=== PATIENT | male | born 1975 | race Caucasian/White ===

== ENCOUNTER 2017-11-11 14:38 | Inpatient (IN) | payer OTHER ==
[~2017-11-11] VITALS: Ht 198.1 cm; Wt 86.2 kg
[2017-11-11 15:16] VITALS: BP 129/54
[2017-11-11] MEDS ORDERED: Pantoprazole Inj IV ONE (15:30)
[2017-11-11 15:41] LABS: INR 1.7 (0.9-1.1)
[2017-11-11 15:44] LABS: HEMOGLOBIN 7.5 G/DL (14.2-18.0); MEAN CORPUSCULAR VOLUME 87 FL (80-99); PLATELET COUNT 89 K/UL (150-450); RED BLOOD COUNT 2.76 M/UL (4.70-6.10); RED CELL DISTRIBUTION WIDTH 20.2 % (11.6-14.8); WHITE BLOOD COUNT 9.3 K/UL (4.8-10.8)
[2017-11-11 15:52] LABS: ALANINE AMINOTRANSFERASE 30 U/L (12-78); ALBUMIN/GLOBULIN RATIO 0.8 (1.0-2.7); ALKALINE PHOSPHATASE 232 U/L (46-116); ASPARTATE AMINO TRANSFERASE 130 U/L (15-37); BLOOD UREA NITROGEN 16 mg/dL (7-18); CALCIUM 7.9 MG/DL (8.5-10.1); CARBON DIOXIDE 25 MMOL/L (21-32)
[2017-11-11 15:57] LABS: BILIRUBIN,DIRECT 4.6 MG/DL (0.0-0.3)
[2017-11-11 16:03] LABS: CHLORIDE 101 MMOL/L (98-107); SODIUM 142 MMOL/L (136-145)
--- NOTE | 2017-11-11 16:58 | Emergency Room Report ---
History of Present Illness General Chief Complaint: General Complaint Source: Patient, EMS Present Illness HPI 41-year-old male presents ED for evaluation. Patient brought in by EMS for vomiting blood earlier today. Patient visiting from [place]. Staying in hotel. Patient denies any abdominal pain. Denies any chest pain or shortness of breath. 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 Admits to drinking yesterday and today as well. Denies drug use. No other aggravating or relieving factors. Denies any other associated symptoms Allergies: Coded Allergies: No Known Allergies (Unverified , 11/11/17) Patient History Past Medical History: other - varices Past Surgical History: none Pertinent Family History: none Social History: Reports: alcohol use; Denies: smoking, drug use Immunizations: UTD Reviewed Nursing Documentation: PMH: Agreed; PSxH: Agreed Nursing Documentation-PMH Past Medical History: No History, Except For Review of Systems All Other Systems: negative except mentioned in HPI Physical Exam Vital Signs Date Time Temp Pulse Resp B/P (MAP) Pulse Ox O2 Delivery O2 Flow Rate FiO2 11/11/17 14:35 98.4 120 16 111/68 99 Room Air 98.4 Sp02 EP Interpretation: reviewed, normal General Appearance: no apparent distress, alert, GCS 15, non-toxic Head: normocephalic, atraumatic Eyes: bilateral eye normal inspection, bilateral eye PERRL ENT: hearing grossly normal, normal pharynx, no angioedema, normal voice Neck: full range of motion, supple/symm/no masses Respiratory: chest non-tender, lungs clear, normal breath sounds, speaking full sentences Cardiovascular #1: regular rate, rhythm, no edema Cardiovascular #2: 2+ carotid (R), 2+ carotid (L), 2+ radial (R), 2+ radial (L) , 2+ dorsalis pedis (R), 2+ dorsalis pedis (L) Gastrointestinal: normal bowel sounds, non tender, soft, non-distended, no guarding, no rebound Rectal: deferred Genitourinary: normal inspection, no CVA tenderness Musculoskeletal: back normal, gait/station normal, normal range of motion, non- tender Neurologic: alert, oriented x3, responsive, motor strength/tone normal, sensory intact, speech normal Psychiatric: judgement/insight normal, memory normal, mood/affect normal, no suicidal/homicidal ideation Reflexes: 3+ bicep (R), 3+ bicep (L), 3+ tricep (R), 3+ tricep (L), 3+ knee (R) , 3+ knee (L) Skin: normal color, no rash, warm/dry, well hydrated Lymphatic: no adenopathy Procedures Critical Care Time Critical Care Time i. I feel this is a highly complex case requiring extensive working including EKG/Rhythm strip, Xray/CT/US, Blood/urine lab work, repeat exams while in ED, and administration of strong opiates/narcotics for pain control, admission to hospital or close patient follow up. Total time: 30 min bedside evaluation and treatment excludes procedures (EKG). Reason for critical care: Anemic, upper GI bleed Possible complications: hypotension, hypertension, AK, shock, arrhythmias, metabolic acidosis, end organ damage, respiratory failure. Interventions: Labs, IV fluids, Protonix, Zofran. Blood transfusion Course: Patient presenting with hematemesis. History of varices. Hemoglobin 7.5. Tachycardia with minimal improvement with IV fluids. Given Protonix and Zofran. PRBCs ordered Consultations: nursing staff, EMS, family Performed by: Dr Montes Tolerated well condition = serious j. because of unstable vital signs this patient had a condition that could potentially threaten life or limb. I feel this is a critical patient who required my full attention while patient was considered critical. Total Critical Care Time excluding procedures was greater than 35 minutes Medical Decision Making Diagnostic Impression: Primary Impression: UGIB (upper gastrointestinal bleed) Additional Impressions: Elevated LFTs Anemia Qualified Codes: D64.9 - Anemia, unspecified ER Course Hospital Course 41-year-old male presents ED with vomiting blood. History of varices Differential diagnoses include: UGIB, LGIB, hemorrhoids Clinical course Patient placed on stretcher. lna. After initial history and physical I ordered labs, IV fluids, Protonix, Zofran Labs - no leukocytosis, hb 7.5. electrolytes ok, LFTS and Bili elevated EKG - sinus tachycardia no acute ischemic changes interpreted by me Tachycardia resolving with IV fluids. PRBCs ordered. Case discussed with Dr. Couch and he agreed to accept the patient to his service for further care and support I feel this is a highly complex case requiring extensive working including EKG/ Rhythm strip, Xray/CT/US, Blood/urine lab work, repeat exams while in ED, and administration of strong opiates/narcotics for pain control, admission to hospital or close patient follow up. Diagnosis - UGIB, elevated LFTs, anemia Patient admitted to telemetry in serious condition Labs Test 11/11/17 15:00 White Blood Count 9.3 K/UL (4.8-10.8) Red Blood Count 2.76 M/UL (4.70-6.10) Hemoglobin 7.5 G/DL (14.2-18.0) Hematocrit 24.0 % (42.0-52.0) Mean Corpuscular Volume 87 FL (80-99) Mean Corpuscular Hemoglobin 27.1 PG (27.0-31.0) Mean Corpuscular Hemoglobin Concent 31.1 G/DL (32.0-36.0) Red Cell Distribution Width 20.2 % (11.6-14.8) Platelet Count 89 K/UL (150-450) Mean Platelet Volume 7.2 FL (6.5-10.1) Neutrophils (%) (Auto) % (45.0-75.0) Lymphocytes (%) (Auto) % (20.0-45.0) Monocytes (%) (Auto) % (1.0-10.0) Eosinophils (%) (Auto) % (0.0-3.0) Basophils (%) (Auto) % (0.0-2.0) Prothrombin Time 17.8 SEC (9.30-11.50) Prothromb Time International Ratio 1.7 (0.9-1.1) Activated Partial Thromboplast Time 37 SEC (23-33) Sodium Level 142 MMOL/L (136-145) Potassium Level 4.0 MMOL/L (3.5-5.1) Chloride Level 101 MMOL/L (98-107) Carbon Dioxide Level 25 MMOL/L (21-32) Blood Urea Nitrogen 16 mg/dL (7-18) Creatinine 1.0 MG/DL (0.55-1.30) Estimat Glomerular Filtration Rate > 60 mL/min (>60) Glucose Level 117 MG/DL (74-106) Calcium Level 7.9 MG/DL (8.5-10.1) Total Bilirubin 7.0 MG/DL (0.2-1.0) Direct Bilirubin 4.6 MG/DL (0.0-0.3) Aspartate Amino Transf (AST/SGOT) 130 U/L (15-37) Alanine Aminotransferase (ALT/SGPT) 30 U/L (12-78) Alkaline Phosphatase 232 U/L (46-116) Total Protein 6.9 G/DL (6.4-8.2) Albumin 3.0 G/DL (3.4-5.0) Globulin 3.9 g/dL Albumin/Globulin Ratio 0.8 (1.0-2.7) Lipase 208 U/L (73-393) EKG Diagnostic Results Rate: tachycardiac Rhythm: NSR ST Segments: no acute changes ASA given to the pt in ED: No Rhythm Strip Diag. Results EP Interpretation: yes Rhythm: NSR, no PVC's, no ectopy Last Vital Signs Date Time Temp Pulse Resp B/P (MAP) Pulse Ox O2 Delivery O2 Flow Rate FiO2 11/11/17 15:16 98.0 123 12 129/54 97 Room Air 98.0 Status: improved Disposition: ADMITTED INPATIENT Condition: Serious Referrals: NOT CHOSEN NEHA/,REFERRING (PCP) LILLY MONTES M.D. Nov 11, 2017 16:57
[2017-11-11 17:16] VITALS: BP 108/62
[2017-11-11 17:19] LABS: APPEARANCE,URINE CLEAR; BILIRUBIN, URINE 1+ (NEGATIVE); GLUCOSE, URINE (UA) NEGATIVE (NEGATIVE); KETONES,URINE 2+ (NEGATIVE); LEUKOCYTE ESTERASE ,URINE 1+ (NEGATIVE); NITRITE,URINE NEGATIVE (NEGATIVE); PH,URINE 6 (4.5-8.0); PROTEIN,URINE 1+ (NEGATIVE); UROBILINOGEN,URINE 4 MG/DL (0.0-1.0)
[2017-11-11 17:21] LABS: COLOR,URINE BROWN
[2017-11-11 18:40] VITALS: BP 129/58
[2017-11-11] MEDS: Octreotide Acetate 500 MCG in Sodium Chloride 500ML 499 ML IV SCH (19:30)
[2017-11-11] MEDS ORDERED: Pantoprazole 80 MG in NS 250 ML IV SCH (19:30)
[2017-11-11] MEDS ORDERED: Piperacillin/Tazobactam 3.375 GM in D5W 110 ML IVPB SCH (19:30)
[2017-11-11] MEDS ORDERED: Pantoprazole Inj ONE (21:33)
--- NOTE | 2017-11-12 02:30 | History and Physical Report ---
DATE OF ADMISSION: 11/11/2017 CHIEF COMPLAINT: GI bleed. HISTORY OF PRESENT ILLNESS: The patient is a 41-year-old male. He states that he has history of varices, but was told that his liver is "okay." He has a history of heavy drinking. Lately, he has been drinking intermittently. He is currently traveling from [place]. He shared a bottle of vodka with three of his friends and then had some coffee-grounds emesis x5, presented to the emergency room. On evaluation there, his hemoglobin was 7.5 and platelet count of 89,000. Coags are elevated at 1.7. His bilirubin was 7 with a direct of 4.6. AST of 130. The patient is currently being transfused. He is now admitted for further evaluation for GI bleed. PAST MEDICAL HISTORY: As above. PAST SURGICAL HISTORY: None. CURRENT MEDICATIONS: None. SOCIAL HISTORY: The patient is a prior heavy drinker and drinks intermittently. Denies any history of withdrawal. FAMILY HISTORY: None. REVIEW OF SYSTEMS: Negative except for coffee-ground emesis. PHYSICAL EXAMINATION: VITAL SIGNS: Temperature 98.7 degrees, pulse 114, respirations 18, and blood pressure 129/58. GENERAL: The patient is a well developed, no apparent distress. HEART: Regular rate and rhythm. LUNGS: Clear. ABDOMEN: Soft. EXTREMITIES: Without clubbing, cyanosis, or edema. LABORATORY DATA: White count 9 and hemoglobin 7.5. INR is 1.7. Total bilirubin of 7. UA was clear. ASSESSMENT: This is a pleasant male with complaints of coffee-ground emesis secondary to variceal bleeding. PLAN: IV proton pump inhibitor, octreotide drip, and IV antibiotics. GI consultation for possible endoscopy. Vitamin K and FFP will also be given. Brennan Couch M.D. DR: Amaris JOB#: [id number] CC:
[2017-11-12] MEDS ORDERED: Piperacillin/Tazobactam 3.375 GM in D5W 110 ML IVPB SCH (06:00)
[2017-11-12] MEDS ORDERED: Zosyn 3.375gm inj ONE (06:03)
[2017-11-12] MEDS: Octreotide Acetate 500 MCG in Sodium Chloride 500ML 499 ML IV SCH ×3 (07:33→16:16)
[2017-11-12 08:00] VITALS: BP 119/72
[2017-11-12] MEDS: Pantoprazole 80 MG in NS 250 ML IV SCH ×2 (08:33→17:39)
--- NOTE | 2017-11-12 09:31 | General Progress Note ---
Assessment/Plan Problem List: (1) Anemia ICD Codes: D64.9 - Anemia, unspecified SNOMED: 266616720 Qualifiers: Qualified Codes: D64.9 - Anemia, unspecified (2) Elevated LFTs ICD Codes: R79.89 - Other specified abnormal findings of blood chemistry SNOMED: 761217247, 157630541 (3) UGIB (upper gastrointestinal bleed) ICD Codes: K92.2 - Gastrointestinal hemorrhage, unspecified SNOMED: 00421706 Status: stable Assessment/Plan follow up cbc PPI octreotide abx gi eval pending Subjective ROS Limited/Unobtainable: No Constitutional: Reports: malaise, weakness HEENT: Reports: no symptoms Cardiovascular: Reports: no symptoms Respiratory: Reports: no symptoms Gastrointestinal/Abdominal: Reports: vomiting Genitourinary: Reports: no symptoms Neurologic/Psychiatric: Reports: no symptoms Endocrine: Reports: no symptoms Hematologic/Lymphatic: Reports: anemia Allergies: Coded Allergies: No Known Allergies (Unverified , 11/11/17) All Systems: reviewed and negative except above Subjective s/p2 units. labs pending. no hematemesis. stool brown Objective Last 24 Hour Vital Signs Date Time Temp Pulse Resp B/P (MAP) Pulse Ox O2 Delivery O2 Flow Rate FiO2 11/12/17 04:00 102 11/12/17 04:00 108 11/12/17 00:00 103 11/11/17 20:00 117 11/11/17 18:52 98.7 114 18 129/58 100 Room Air 98.7 11/11/17 18:40 98.7 114 19 98.7 11/11/17 18:40 98.7 114 18 129/58 100 Room Air 98.7 11/11/17 17:16 98.0 116 19 108/62 100 Room Air 98.0 11/11/17 15:16 98.0 123 12 129/54 97 Room Air 98.0 11/11/17 14:35 98.4 120 16 111/68 99 Room Air 98.4 Intake and Output 11/11/17 11/12/17 19:00 07:00 Intake Total 1240 ml Output Total 4 ml Balance 1240 ml -4 ml Intake Oral 240 ml IV Total 1000 ml Output Urine Total 4 ml Laboratory Tests 11/11/17 15:00: White Blood Count 9.3, Red Blood Count 2.76L, Hemoglobin 7.5L, Hematocrit 24.0L , Mean Corpuscular Volume 87, Mean Corpuscular Hemoglobin 27.1, Mean Corpuscular Hemoglobin Concent 31.1L, Red Cell Distribution Width 20.2H, Platelet Count 89L, Mean Platelet Volume 7.2, Neutrophils (%) (Auto) , Lymphocytes (%) (Auto) , Monocytes (%) (Auto) , Eosinophils (%) (Auto) , Basophils (%) (Auto) , Differential Total Cells Counted 100, Neutrophils % ( Manual) 81H, Lymphocytes % (Manual) 13L, Monocytes % (Manual) 5, Eosinophils % ( Manual) 0, Basophils % (Manual) 0, Band Neutrophils 1, Platelet Estimate DecreasedL, Platelet Morphology Normal, Polychromasia 1+, Hypochromasia 2+, Anisocytosis 2+, Target Cells 1+, Prothrombin Time 17.8H, Prothromb Time International Ratio 1.7H, Activated Partial Thromboplast Time 37H, Sodium Level 142, Potassium Level 4.0, Chloride Level 101, Carbon Dioxide Level 25, Blood Urea Nitrogen 16, Creatinine 1.0, Estimat Glomerular Filtration Rate > 60, Glucose Level 117H, Calcium Level 7.9L, Total Bilirubin 7.0H, Direct Bilirubin 4.6H, Aspartate Amino Transf (AST/SGOT) 130H, Alanine Aminotransferase (ALT/SGPT ) 30, Alkaline Phosphatase 232H, Total Protein 6.9, Albumin 3.0L, Globulin 3.9, Albumin/Globulin Ratio 0.8L, Lipase 208 11/11/17 15:10: Urine Color Brown, Urine Appearance Clear, Urine pH 6, Urine Specific [place] 1.020, Urine Protein 1+H, Urine Glucose (UA) Negative, Urine Ketones 2+H, Urine Occult Blood Negative, Urine Nitrite Negative, Urine Bilirubin 1+H, Urine Ictotest Positive, Urine Urobilinogen 4H, Urine Leukocyte Esterase 1+H, Urine RBC 0-2H, Urine WBC 2-4, Urine Squamous Epithelial Cells None, Urine Amorphous Sediment FewH, Urine Bacteria Few Height (Feet): 6 Weight (Pounds): 190 General Appearance: WD/WN Neck: supple Cardiovascular: regular rhythm Respiratory/Chest: lungs clear Abdomen: normal bowel sounds, non tender, soft, no organomegaly Edema: no edema noted Arm (L), no edema noted Arm (R), no edema noted Leg (L), no edema noted Leg (R), no edema noted Pedal (L), no edema noted Pedal (R), no edema noted Generalized GILSON SIERRA Nov 12, 2017 09:31
[2017-11-12 09:48] LABS: HEMATOCRIT 28.2 % (42.0-52.0); HEMOGLOBIN 9.1 G/DL (14.2-18.0); MEAN CORPUSCULAR VOLUME 86 FL (80-99); PLATELET COUNT 77 K/UL (150-450); RED BLOOD COUNT 3.29 M/UL (4.70-6.10); RED CELL DISTRIBUTION WIDTH 18.6 % (11.6-14.8); WHITE BLOOD COUNT 6.5 K/UL (4.8-10.8)
[2017-11-12 12:00] VITALS: BP 118/72
[2017-11-12 13:29] LABS: ANION GAP 6 mmol/L (5-15); BLOOD UREA NITROGEN 15 mg/dL (7-18); CALCIUM 7.7 MG/DL (8.5-10.1); CARBON DIOXIDE 28 MMOL/L (21-32); CHLORIDE 107 MMOL/L (98-107); POTASSIUM 4.7 MMOL/L (3.5-5.1); SODIUM 141 MMOL/L (136-145)
[2017-11-12 13:31] LABS: INR 1.6 (0.9-1.1)
[2017-11-12 13:39] LABS: ALANINE AMINOTRANSFERASE 27 U/L (12-78); ALBUMIN 2.9 G/DL (3.4-5.0); ALBUMIN/GLOBULIN RATIO 0.8 (1.0-2.7); ALKALINE PHOSPHATASE 203 U/L (46-116); ASPARTATE AMINO TRANSFERASE 128 U/L (15-37); BILIRUBIN,TOTAL 8.7 MG/DL (0.2-1.0)
[2017-11-12 13:40] LABS: BILIRUBIN,DIRECT 5.5 MG/DL (0.0-0.3)
[2017-11-12] MEDS: Piperacillin/Tazobactam 3.375 GM in D5W 110 ML IVPB SCH ×2 (14:06→21:10)
[2017-11-12 16:00] VITALS: BP 109/68
[2017-11-12] MEDS ORDERED: Phytonadione 10 mg/mL 1ml amp SUBQ ONE (17:45)
[2017-11-12 19:24] LABS: HEMATOCRIT 25.7 % (42.0-52.0); HEMOGLOBIN 8.2 G/DL (14.2-18.0); MEAN CORPUSCULAR VOLUME 85 FL (80-99); PLATELET COUNT 70 K/UL (150-450); RED BLOOD COUNT 3.01 M/UL (4.70-6.10); RED CELL DISTRIBUTION WIDTH 18.5 % (11.6-14.8); WHITE BLOOD COUNT 4.4 K/UL (4.8-10.8)
[2017-11-12 20:00] VITALS: BP 118/65
--- NOTE | 2017-11-12 20:30 | Consultation ---
DATE OF CONSULTATION: 11/12/2017 GASTROENTEROLOGY CONSULTATION CONSULTING PHYSICIAN: Brigette Yadav M.D. CHIEF COMPLAINT: I was asked to see this patient for evaluation of upper gastrointestinal bleeding and alcoholic hepatitis. HISTORY OF PRESENT ILLNESS: The patient is a 41-year-old white man, who is admitted on an emergency basis for acute upper gastrointestinal bleeding to this hospital. The patient states that he had some drinks on weekend and then subsequently felt sick, nauseous, and then had vomiting of red blood. He has had history of upper gastrointestinal bleeding in the past that involved varices. He has had four endoscopies total, two of which involved banding and two were simply surveillance endoscopies. His last endoscopy was in June 2017. He has also had been told he has some degree of cirrhosis and has had jaundice in the past. On this occasion, he also has noted that he has become jaundiced. He previously drank heavily up to about a quarter of a bottle a day. He drinks hard liquor. Now he drinks intermittently. PAST MEDICAL HISTORY: Remarkable for alcohol use as described above, otherwise negative. ALLERGIES: None. MEDICATIONS: See chart list for details. FAMILY HISTORY: Positive for some type of cancer in the paternal grandmother. SOCIAL HISTORY: The patient is . 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 REVIEW OF SYSTEMS: Otherwise negative. PHYSICAL EXAMINATION: GENERAL: This is a pleasant jaundiced white man seen in his room. HEENT: Normocephalic and atraumatic. Sclerae were icteric. Oropharynx clear. NECK: Supple. CHEST: Clear to auscultation. CARDIOVASCULAR: Revealed regular rate. ABDOMEN: Soft. Good bowel sounds. EXTREMITIES: Revealed no edema. LABORATORY DATA: Noted. ASSESSMENT: This patient presents with jaundice which has been attributed to acute alcoholic hepatitis given the AST/ALT ratio. His discriminant factor calculates to 38. Therefore, he was started on steroids for 28 days at a dose of 40 mg daily. He should also be placed on proton pump inhibitor. Sandostatin drip has been started empirically for presumption of varices and this will be continued until his endoscopy is done and further evaluation has been made. The patient will be kept n.p.o. or at least on clear liquids until his time of endoscopy. He was strongly advised to discontinue alcohol consumption as he states he has been told before. RECOMMENDATIONS: 1. Serial CBC. 2. Check coagulation. 3. N.P.O. 4. Sandostatin. 5. Prednisone 40 mg daily for 28 days. 6. Endoscopy with possible banding. Thank you for asking me to participate in the care of this patient. Brigette Yadav M.D. DR: Doug JOB#: [id number] CC: PRASHANTH
[2017-11-13] VITALS (9 sets, daily range): BP systolic 102–152; BP diastolic 56–89
[2017-11-13] MEDS: Octreotide Acetate 500 MCG in Sodium Chloride 500ML 499 ML IV SCH ×2 (00:47→13:08)
[2017-11-13 02:08] LABS: HEMATOCRIT 24.8 % (42.0-52.0); MEAN CORPUSCULAR VOLUME 86 FL (80-99); PLATELET COUNT 70 K/UL (150-450); RED BLOOD COUNT 2.88 M/UL (4.70-6.10); RED CELL DISTRIBUTION WIDTH 18.6 % (11.6-14.8); WHITE BLOOD COUNT 3.3 K/UL (4.8-10.8)
[2017-11-13] MEDS: Pantoprazole 80 MG in NS 250 ML IV SCH ×2 (03:25→13:26)
[2017-11-13] MEDS: Piperacillin/Tazobactam 3.375 GM in D5W 110 ML IVPB SCH ×2 (05:26→13:33)
--- NOTE | 2017-11-13 08:27 | General Progress Note ---
Assessment/Plan Problem List: (1) Anemia ICD Codes: D64.9 - Anemia, unspecified SNOMED: [id number] Qualifiers: Qualified Codes: D64.9 - Anemia, unspecified (2) Elevated LFTs ICD Codes: R79.89 - Other specified abnormal findings of blood chemistry SNOMED: 421922814, [id number] (3) UGIB (upper gastrointestinal bleed) ICD Codes: K92.2 - Gastrointestinal hemorrhage, unspecified SNOMED: 53695258 Status: stable Assessment/Plan transfuse PPI octreotide abx endoscopy today Subjective ROS Limited/Unobtainable: No Constitutional: Reports: malaise HEENT: Reports: no symptoms Cardiovascular: Reports: no symptoms Respiratory: Reports: no symptoms Gastrointestinal/Abdominal: Reports: vomiting Genitourinary: Reports: no symptoms Neurologic/Psychiatric: Reports: no symptoms Endocrine: Reports: no symptoms Hematologic/Lymphatic: Reports: anemia Allergies: Coded Allergies: No Known Allergies (Unverified , 11/11/17) All Systems: reviewed and negative except above Subjective no hematemesis stayes stool is brown npo for egd Objective Last 24 Hour Vital Signs Date Time Temp Pulse Resp B/P (MAP) Pulse Ox O2 Delivery O2 Flow Rate FiO2 11/13/17 04:00 82 11/13/17 04:00 98.1 82 18 102/56 95 Room Air 98.1 11/13/17 00:00 97.9 85 18 114/63 93 Room Air 97.9 11/13/17 00:00 75 11/12/17 20:00 98.2 76 18 118/65 96 Room Air 98.2 11/12/17 20:00 79 11/12/17 16:00 115 11/12/17 16:00 98.0 94 20 109/68 95 Room Air 98.0 11/12/17 12:00 101 11/12/17 12:00 98.4 98 20 118/72 98 Room Air 98.4 Intake and Output 11/12/17 11/13/17 19:00 07:00 Intake Total 1885.0 ml 250 ml Balance 1885.0 ml 250 ml Intake Oral 800 ml IV Total 1085.0 ml 250 ml # Voids 1 1 # Bowel Movements 1 Laboratory Tests 11/12/17 09:05: White Blood Count 6.5, Red Blood Count 3.29L, Hemoglobin 9.1L, Hematocrit 28.2L , Mean Corpuscular Volume 86, Mean Corpuscular Hemoglobin 27.5, Mean Corpuscular Hemoglobin Concent 32.1, Red Cell Distribution Width 18.6H, Platelet Count 77L, Mean Platelet Volume 9.0, Neutrophils (%) (Auto) , Lymphocytes (%) (Auto) , Monocytes (%) (Auto) , Eosinophils (%) (Auto) , Basophils (%) (Auto) , Differential Total Cells Counted 100, Neutrophils % ( Manual) 63, Lymphocytes % (Manual) 25, Monocytes % (Manual) 8, Eosinophils % ( Manual) 2, Basophils % (Manual) 0, Band Neutrophils 2, Platelet Estimate DecreasedL, Platelet Morphology Normal, Hypochromasia 1+, Anisocytosis 1+, Schistocytes Occasional 11/12/17 12:50: Prothrombin Time 16.9H, Prothromb Time International Ratio 1.6H, Sodium Level 141, Potassium Level 4.7, Chloride Level 107, Carbon Dioxide Level 28, Anion Gap 6, Blood Urea Nitrogen 15, Creatinine 1.0, Estimat Glomerular Filtration Rate > 60, Glucose Level 83, Calcium Level 7.7L, Total Bilirubin 8.7H, Direct Bilirubin 5.5H, Aspartate Amino Transf (AST/SGOT) 128H, Alanine Aminotransferase (ALT/SGPT) 27, Alkaline Phosphatase 203H, Total Protein 6.5, Albumin 2.9L, Globulin 3.6, Albumin/Globulin Ratio 0.8L 11/12/17 18:43: White Blood Count 4.4L, Red Blood Count 3.01L, Hemoglobin 8.2L, Hematocrit 25.7L , Mean Corpuscular Volume 85, Mean Corpuscular Hemoglobin 27.3, Mean Corpuscular Hemoglobin Concent 32.0, Red Cell Distribution Width 18.5H, Platelet Count 70L, Mean Platelet Volume 9.4, Neutrophils (%) (Auto) , Lymphocytes (%) (Auto) , Monocytes (%) (Auto) , Eosinophils (%) (Auto) , Basophils (%) (Auto) , Differential Total Cells Counted 100, Neutrophils % ( Manual) 81H, Lymphocytes % (Manual) 13L, Monocytes % (Manual) 4, Eosinophils % ( Manual) 1, Basophils % (Manual) 1, Band Neutrophils 0, Platelet Estimate DecreasedL, Platelet Morphology Normal, Hypochromasia 2+, Anisocytosis 2+ 11/13/17 02:00: White Blood Count 3.3L, Red Blood Count 2.88L, Hemoglobin 8.0L, Hematocrit 24.8L , Mean Corpuscular Volume 86, Mean Corpuscular Hemoglobin 27.9, Mean Corpuscular Hemoglobin Concent 32.4, Red Cell Distribution Width 18.6H, Platelet Count 70L, Mean Platelet Volume 8.4, Neutrophils (%) (Auto) , Lymphocytes (%) (Auto) , Monocytes (%) (Auto) , Eosinophils (%) (Auto) , Basophils (%) (Auto) , Neutrophils % (Manual) [Pending], Lymphocytes % (Manual) [Pending], Platelet Estimate [Pending], Platelet Morphology [Pending] Height (Feet): 6 Height (Inches): 6.00 Weight (Pounds): 190 Objective General Appearance: WD/WN Neck: supple Cardiovascular: regular rhythm Respiratory/Chest: lungs clear Abdomen: normal bowel sounds, non tender, soft, no organomegaly Edema: no edema noted Arm (L), no edema noted Arm (R), no edema noted Leg (L), no edema noted Leg (R), no edema noted Pedal (L), no edema noted Pedal (R), no edema noted Generalized GILSON SIERRA Nov 13, 2017 08:27
[2017-11-13 09:51] LABS: MEAN CORPUSCULAR VOLUME 85 FL (80-99); PLATELET COUNT 73 K/UL (150-450); RED BLOOD COUNT 2.94 M/UL (4.70-6.10); RED CELL DISTRIBUTION WIDTH 18.8 % (11.6-14.8); WHITE BLOOD COUNT 5.4 K/UL (4.8-10.8)
[2017-11-13 10:10] LABS: INR 1.7 (0.9-1.1)
[2017-11-13 10:27] LABS: ALANINE AMINOTRANSFERASE 28 U/L (12-78); ALBUMIN 2.6 G/DL (3.4-5.0); ALBUMIN/GLOBULIN RATIO 0.7 (1.0-2.7); ALKALINE PHOSPHATASE 190 U/L (46-116); ANION GAP 10 mmol/L (5-15); ASPARTATE AMINO TRANSFERASE 98 U/L (15-37); BILIRUBIN,TOTAL 7.7 MG/DL (0.2-1.0); BLOOD UREA NITROGEN 19 mg/dL (7-18); CALCIUM 7.4 MG/DL (8.5-10.1); CARBON DIOXIDE 26 MMOL/L (21-32); CHLORIDE 105 MMOL/L (98-107); CREATININE 1.1 MG/DL (0.55-1.30); SODIUM 140 MMOL/L (136-145)
[2017-11-13 10:38] LABS: BILIRUBIN,DIRECT 4.4 MG/DL (0.0-0.3)
[2017-11-13] MEDS ORDERED: Lidocaine 1% MPF 10mg/ml 5ml ONE (11:00)
[2017-11-13] MEDS ORDERED: Midazolam 2mg/2ml Inj ONE (11:00)
[2017-11-13] MEDS ORDERED: NS Irrig 1000ml ONE (11:00)
[2017-11-13] MEDS ORDERED: LR 1000ml ONE (11:00)
[2017-11-13] MEDS ORDERED: Propofol 200mg/20ml IV ONE (11:00)
[2017-11-13] MEDS ORDERED: LR 1000ml 1,000 ML IVLG SCH (11:05)
[2017-11-13] MEDS ORDERED: HYDROcodone/Acetamin 7.5/325 tab ORAL PRN (11:15)
[2017-11-13] MEDS ORDERED: Labetalol 5mg/ml 20ml vial IV PRN (11:15)
[2017-11-13] MEDS ORDERED: Atropine Inj 1mg/10ml Syr IV PRN (11:15)
[2017-11-13] MEDS ORDERED: oxyCODONE HCL/Acetaminophen 5/325mg ORAL PRN (11:15)
[2017-11-13] MEDS ORDERED: Norco 5mg/325mg tab ORAL PRN (11:15)
[2017-11-13] MEDS ORDERED: Midazolam 2mg/2ml Inj IVP PRN (11:15)
[2017-11-13] MEDS ORDERED: fentaNYL 100 mcg/2 mL IV PRN (11:15)
[2017-11-13] MEDS ORDERED: Ketorolac 30mg Inj IV PRN ×2 (11:15)
[2017-11-13] MEDS ORDERED: LORazepam Inj 2mg/ml 1ml IV PRN (11:15)
[2017-11-13] MEDS ORDERED: DiphenhydrAMINE 50mg/ml Inj IVP PRN (11:15)
[2017-11-13] MEDS ORDERED: Hydromorphone 0.5mg/0.5ml inj IVP PRN (11:15)
--- NOTE | 2017-11-13 11:22 | Immediate Post-Op Evaluation ---
Immediate Post-Op Evalulation Immediate Post-Op Evalulation Procedure: EGD Date of Evaluation: Nov 13, 2017 Time of Evaluation: 12:20 IV Fluids: 700 NS Blood Products: 0 Estimated Blood Loss: 20 Urinary Output: 0 Blood Pressure Systolic: 135 Blood Pressure Diastolic: 88 Pulse Rate: 91 Respiratory Rate: 16 O2 Sat by Pulse Oximetry: 95 Temperature (Fahrenheit): 98.9 Pain Score (1-10): 2 Nausea: No Vomiting: No Complications 0 Patient Status: awake, reacts, patent, none Hydration Status: adequate Sampson Childers MD Nov 13, 2017 11:22
--- NOTE | 2017-11-13 11:22 | Anethesia Preoperative Eval ---
Anesthesia Pre-op PMH/ROS General Date of Evaluation: Nov 13, 2017 Anesthesiologist: Alvarado ASA Score: ASA 3 - Emergency Mallampati Score Class I : Soft palate, uvula, fauces, pillars visible Class II: Soft palate, uvula, fauces visible Class III: Soft palate, base of uvula visible Class IV: Only hard plate visible Mallampati Classification: Class II Surgeon: Leif Diagnosis: Abd Pain Surgical Procedure: EGD Anesthesia History: none Social History: alcohol use - Heavy Use Family History: no anesthesia problems Allergies: Coded Allergies: No Known Allergies (Unverified , 11/11/17) Medications: see eMAR Past Medical History Gastrointestinal/Genitourinary: Reports: other - Binge Drinker Hematology/Immune: Reports: anemia - GI Bleed Anesthesia Pre-op Phys. Exam Physician Exam Last Vital Signs Date Time Temp Pulse Resp B/P (MAP) Pulse Ox O2 Delivery O2 Flow Rate FiO2 11/13/17 08:00 97.7 70 19 112/65 95 Room Air 97.7 Constitutional: NAD Neurologic: CN 2-12 intact Cardiovascular: RRR Respiratory: CTA Gastrointestinal: S/NT/ND Airway Exam Mallampati Score: Class II MO: full ROM: full Teeth: intact Anesthesia Pre-op A/P Labs Hematology Test 11/12/17 18:43 11/13/17 02:00 11/13/17 09:30 White Blood Count 4.4 K/UL (4.8-10.8) L 3.3 K/UL (4.8-10.8) L 5.4 K/UL (4.8-10.8) # Red Blood Count 3.01 M/UL (4.70-6.10) L 2.88 M/UL (4.70-6.10) L 2.94 M/UL (4.70-6.10) L Hemoglobin 8.2 G/DL (14.2-18.0) L 8.0 G/DL (14.2-18.0) L 8.0 G/DL (14.2-18.0) L Hematocrit 25.7 % (42.0-52.0) L 24.8 % (42.0-52.0) L 25.0 % (42.0-52.0) L Mean Corpuscular Volume 85 FL (80-99) 86 FL (80-99) 85 FL (80-99) Mean Corpuscular Hemoglobin 27.3 PG (27.0-31.0) 27.9 PG (27.0-31.0) 27.3 PG (27.0-31.0) Mean Corpuscular Hemoglobin Concent 32.0 G/DL (32.0-36.0) 32.4 G/DL (32.0-36.0) 32.1 G/DL (32.0-36.0) Red Cell Distribution Width 18.5 % (11.6-14.8) H 18.6 % (11.6-14.8) H 18.8 % (11.6-14.8) H Platelet Count 70 K/UL (150-450) L 70 K/UL (150-450) L 73 K/UL (150-450) L Mean Platelet Volume 9.4 FL (6.5-10.1) 8.4 FL (6.5-10.1) 8.7 FL (6.5-10.1) Neutrophils (%) (Auto) % (45.0-75.0) % (45.0-75.0) % (45.0-75.0) Lymphocytes (%) (Auto) % (20.0-45.0) % (20.0-45.0) % (20.0-45.0) Monocytes (%) (Auto) % (1.0-10.0) % (1.0-10.0) % (1.0-10.0) Eosinophils (%) (Auto) % (0.0-3.0) % (0.0-3.0) % (0.0-3.0) Basophils (%) (Auto) % (0.0-2.0) % (0.0-2.0) % (0.0-2.0) Differential Total Cells Counted 100 100 100 Neutrophils % (Manual) 81 % (45-75) H 75 % (45-75) 72 % (45-75) Lymphocytes % (Manual) 13 % (20-45) L 22 % (20-45) 22 % (20-45) Monocytes % (Manual) 4 % (1-10) 3 % (1-10) 6 % (1-10) Eosinophils % (Manual) 1 % (0-3) 0 % (0-3) 0 % (0-3) Basophils % (Manual) 1 % (0-2) 0 % (0-2) 0 % (0-2) Band Neutrophils 0 % (0-8) 0 % (0-8) 0 % (0-8) Platelet Estimate Decreased L Decreased L Decreased L Platelet Morphology Normal Normal Normal Hypochromasia 2+ 1+ 1+ Anisocytosis 2+ 1+ 1+ Coagulation Test 11/12/17 12:50 11/13/17 09:30 Prothrombin Time 16.9 SEC (9.30-11.50) H 17.4 SEC (9.30-11.50) H Prothromb Time International Ratio 1.6 (0.9-1.1) H 1.7 (0.9-1.1) H Chemistry Test 11/12/17 12:50 11/13/17 09:30 Sodium Level 141 MMOL/L (136-145) 140 MMOL/L (136-145) Potassium Level 4.7 MMOL/L (3.5-5.1) 4.0 MMOL/L (3.5-5.1) Chloride Level 107 MMOL/L (98-107) 105 MMOL/L (98-107) Carbon Dioxide Level 28 MMOL/L (21-32) 26 MMOL/L (21-32) Anion Gap 6 mmol/L (5-15) 10 mmol/L (5-15) Blood Urea Nitrogen 15 mg/dL (7-18) 19 mg/dL (7-18) H Creatinine 1.0 MG/DL (0.55-1.30) 1.1 MG/DL (0.55-1.30) Estimat Glomerular Filtration Rate > 60 mL/min (>60) > 60 mL/min (>60) Glucose Level 83 MG/DL (74-106) 115 MG/DL (74-106) H Calcium Level 7.7 MG/DL (8.5-10.1) L 7.4 MG/DL (8.5-10.1) L Total Bilirubin 8.7 MG/DL (0.2-1.0) H 7.7 MG/DL (0.2-1.0) H Direct Bilirubin 5.5 MG/DL (0.0-0.3) H 4.4 MG/DL (0.0-0.3) H Aspartate Amino Transf (AST/SGOT) 128 U/L (15-37) H 98 U/L (15-37) H Alanine Aminotransferase (ALT/SGPT) 27 U/L (12-78) 28 U/L (12-78) Alkaline Phosphatase 203 U/L (46-116) H 190 U/L (46-116) H Total Protein 6.5 G/DL (6.4-8.2) 6.1 G/DL (6.4-8.2) L Albumin 2.9 G/DL (3.4-5.0) L 2.6 G/DL (3.4-5.0) L Globulin 3.6 g/dL 3.5 g/dL Albumin/Globulin Ratio 0.8 (1.0-2.7) L 0.7 (1.0-2.7) L Risk Assessment & Plan Assessment: ASA 3E Plan: GA Status Change Before Surgery: No Sampson Childers MD Nov 13, 2017 11:22
--- NOTE | 2017-11-13 11:23 | 48 Hour Post Anesthesia Eval ---
Post Anesthesia Evaluation Procedure: EGD Date of Evaluation: Nov 13, 2017 Time of Evaluation: 14:32 Blood Pressure Systolic: 141 0: 87 Pulse Rate: 84 Respiratory Rate: 18 Temperature (Fahrenheit): 98.9 O2 Sat by Pulse Oximetry: 97 Airway: patent Nausea: No Vomiting: No Pain Intensity: 2 Hydration Status: adequate Cardiopulmonary Status: Stable Mental Status/LOC: patient returned to baseline Follow-up Care/Observations: 0 Post-Anesthesia Complications: 0 Follow-up care needed: N/A Sampson Childers MD Nov 13, 2017 11:23
--- NOTE | 2017-11-13 11:31 | General Progress Note ---
Assessment/Plan Assessment/Plan Assessment - UGIB - EtOH cirrhosis - EtOH hepatitis, with discriminant score of 38 - coagulopathy - h/o banded esophageal varicies - anemia - guarded Recommendations - NPO - IVF - PPI - Prednisone 40 mg x 27 more days - EGD with possible EBL today - stop EtOH - strongly advised Subjective Allergies: Coded Allergies: No Known Allergies (Unverified , 11/11/17) Subjective Getting a unit of PRBC seen in GI lab feels OK no hematemesis says wants to leave AMA michael says has a plane ride to [place] tomorrow strongly advised against signing out AMA advised can have recurrent and possibly lethal bleeding if it happens on a [place] flight Objective Last 24 Hour Vital Signs Date Time Temp Pulse Resp B/P (MAP) Pulse Ox O2 Delivery O2 Flow Rate FiO2 11/13/17 08:00 97.7 70 19 112/65 95 Room Air 97.7 11/13/17 08:00 65 11/13/17 04:00 82 11/13/17 04:00 98.1 82 18 102/56 95 Room Air 98.1 11/13/17 00:00 97.9 85 18 114/63 93 Room Air 97.9 11/13/17 00:00 75 11/12/17 20:00 98.2 76 18 118/65 96 Room Air 98.2 11/12/17 20:00 79 11/12/17 16:00 115 11/12/17 16:00 98.0 94 20 109/68 95 Room Air 98.0 11/12/17 12:00 101 11/12/17 12:00 98.4 98 20 118/72 98 Room Air 98.4 Intake and Output 11/12/17 11/13/17 19:00 07:00 Intake Total 1885.0 ml 250 ml Balance 1885.0 ml 250 ml Intake Oral 800 ml IV Total 1085.0 ml 250 ml # Voids 1 1 # Bowel Movements 1 Laboratory Tests 11/12/17 12:50: Prothrombin Time 16.9H, Prothromb Time International Ratio 1.6H, Sodium Level 141, Potassium Level 4.7, Chloride Level 107, Carbon Dioxide Level 28, Anion Gap 6, Blood Urea Nitrogen 15, Creatinine 1.0, Estimat Glomerular Filtration Rate > 60, Glucose Level 83, Calcium Level 7.7L, Total Bilirubin 8.7H, Direct Bilirubin 5.5H, Aspartate Amino Transf (AST/SGOT) 128H, Alanine Aminotransferase (ALT/SGPT) 27, Alkaline Phosphatase 203H, Total Protein 6.5, Albumin 2.9L, Globulin 3.6, Albumin/Globulin Ratio 0.8L 11/12/17 18:43: White Blood Count 4.4L, Red Blood Count 3.01L, Hemoglobin 8.2L, Hematocrit 25.7L , Mean Corpuscular Volume 85, Mean Corpuscular Hemoglobin 27.3, Mean Corpuscular Hemoglobin Concent 32.0, Red Cell Distribution Width 18.5H, Platelet Count 70L, Mean Platelet Volume 9.4, Neutrophils (%) (Auto) , Lymphocytes (%) (Auto) , Monocytes (%) (Auto) , Eosinophils (%) (Auto) , Basophils (%) (Auto) , Differential Total Cells Counted 100, Neutrophils % ( Manual) 81H, Lymphocytes % (Manual) 13L, Monocytes % (Manual) 4, Eosinophils % ( Manual) 1, Basophils % (Manual) 1, Band Neutrophils 0, Platelet Estimate DecreasedL, Platelet Morphology Normal, Hypochromasia 2+, Anisocytosis 2+ 11/13/17 02:00: White Blood Count 3.3L, Red Blood Count 2.88L, Hemoglobin 8.0L, Hematocrit 24.8L , Mean Corpuscular Volume 86, Mean Corpuscular Hemoglobin 27.9, Mean Corpuscular Hemoglobin Concent 32.4, Red Cell Distribution Width 18.6H, Platelet Count 70L, Mean Platelet Volume 8.4, Neutrophils (%) (Auto) , Lymphocytes (%) (Auto) , Monocytes (%) (Auto) , Eosinophils (%) (Auto) , Basophils (%) (Auto) , Differential Total Cells Counted 100, Neutrophils % ( Manual) 75, Lymphocytes % (Manual) 22, Monocytes % (Manual) 3, Eosinophils % ( Manual) 0, Basophils % (Manual) 0, Band Neutrophils 0, Platelet Estimate DecreasedL, Platelet Morphology Normal, Hypochromasia 1+, Anisocytosis 1+ 11/13/17 09:30: Prothrombin Time 17.4H, Prothromb Time International Ratio 1.7H, Sodium Level 140, Potassium Level 4.0, Chloride Level 105, Carbon Dioxide Level 26, Anion Gap 10, Blood Urea Nitrogen 19H, Creatinine 1.1, Estimat Glomerular Filtration Rate > 60, Glucose Level 115H, Calcium Level 7.4L, Total Bilirubin 7.7H, Direct Bilirubin 4.4H, Aspartate Amino Transf (AST/SGOT) 98H, Alanine Aminotransferase (ALT/SGPT) 28, Alkaline Phosphatase 190H, Total Protein 6.1L, Albumin 2.6L, Globulin 3.5, Albumin/Globulin Ratio 0.7L, White Blood Count 5.4#, Red Blood Count 2.94L, Hemoglobin 8.0L, Hematocrit 25.0L, Mean Corpuscular Volume 85, Mean Corpuscular Hemoglobin 27.3, Mean Corpuscular Hemoglobin Concent 32.1, Red Cell Distribution Width 18.8H, Platelet Count 73L, Mean Platelet Volume 8.7, Neutrophils (%) (Auto) , Lymphocytes (%) (Auto) , Monocytes (%) (Auto) , Eosinophils (%) (Auto) , Basophils (%) (Auto) , Differential Total Cells Counted 100, Neutrophils % (Manual) 72, Lymphocytes % (Manual) 22, Monocytes % ( Manual) 6, Eosinophils % (Manual) 0, Basophils % (Manual) 0, Band Neutrophils 0 , Platelet Estimate DecreasedL, Platelet Morphology Normal, Hypochromasia 1+, Anisocytosis 1+ Height (Feet): 6 Height (Inches): 6.00 Weight (Pounds): 190 Objective Calm , jaundiced NCAT supple CTA RRR soft ND NT no edema non focal OVIDIO PRICE Nov 13, 2017 11:31
--- NOTE | 2017-11-13 11:32 | Pre-Procedure Note/Attestation ---
Pre-Procedure Note/Attestation Complete Prior to Procedure Planned Procedure: not applicable Procedure Narrative: EGD/possible EBL Indications for Procedure Pre-Operative Diagnosis: UGIB Attestation I attest that I discussed the nature of the procedure; its benefits; risks and complications; and alternatives (and the risks and benefits of such alternatives ), prior to the procedure, with the patient (or the patient's legal charter representative). I attest that, if there was a reasonable possibility of needing a blood transfusion, the patient (or the patient's legal charter representative) was given the [facility] standardized written summary, pursuant to the [place] Blood Safety Act ([place] Health and Safety Code # 1645, as amended). I attest that I re-evaluated the patient just prior to the surgery and that there has been no change in the patient's H&P, except as documented below: OVIDIO PRICE Nov 13, 2017 11:32
[2017-11-13] MEDS ORDERED: NS Irrig 1000ml IRRIG ONE (11:33)
--- NOTE | 2017-11-13 11:59 | Endoscopy Procedure Note ---
Endoscopy Procedure Note General Indication for Procedure: UGIB Procedures Performed: EGD Operative Findings/Diagnosis: partially treated Vx, PHG, Duod erosions, GERD, Banded x 4 Specimen: none Pt Tolerated Procedure Well: Yes Estimated Blood Loss: minimal Anesthesia Anesthesiologist: Alvarado Anesthesia: MAC Medications Medication Given: see anesthesia record Inserted Devices Implant(s) used?: No GI Core Measures 50 yrs or older w/o bx or poly: Not Applicable 10yrs. F/U not recommended: Not Applicable If not recommended, why?: OVIDIO PRICE Nov 13, 2017 11:59
--- NOTE | 2017-11-13 12:00 | Brief Operative Note ---
Immediate Post Operative Note Operative Note Chief Complaint: UGIB Pre-op Diagnosis: UGIB Procedure: EGD/EBL Post-op Diagnosis: PHG duod erosions treated esoph vx GERD/ulcer s/p band x 4 Surgeon: vitor Anesthesiologist: Delfino Anesthesia: MAC Specimen: none Complications: none Condition: stable Fluids: recorded Estimated Blood Loss: none Drains: none Implant(s) used?: No OVIDIO PRICE Nov 13, 2017 12:00
[2017-11-13] MEDS ORDERED: Octreotide Acetate 500 MCG in Sodium Chloride 500ML 499 ML IV SCH (19:30)
[2017-11-14] MEDS ORDERED: Octreotide Acetate 500 MCG in Sodium Chloride 500ML 499 ML IV SCH (06:01)
--- NOTE | 2017-11-14 19:24 | Cardiology Report ---
APPROVED REPORT EKG Measurement Heart [id number] Sinus tachycardia with frequent premature ventricular complexes Otherwise normal ECG
--- NOTE | 2017-11-16 07:56 | Discharge Summary ---
Discharge Summary Hospital Course Date of Admission Nov 11, 2017 at 16:22 Date of Discharge Nov 13, 2017 at 15:45 Admitting Diagnosis UGIB HPI Jose Loomis is a 41 year old male who was admitted on Nov 11, 2017 at 16:22 for Upper Gastrointestinal Bleed Hospital Course dc summary # [id number] Discharge Discharge Disposition Patient signed AMA Discharge Instructions Discharge Instructions Special Instructions I have been assigned to complete a D/C Summary on this account. I was not involved in the patient management Nora Burrows NP ([place]) Nov 16, 2017 07:56
== END 2017-11-13 15:45 | disposition left against medical advice (07) | DRG 378 ==
LOC: EDBD 14:38 → EMR 15:12 → 2E 16:22 → EDBEDREQ 16:44
PROC: 30233N1 Transfusion of Nonautologous Red Blood Cells into Peripheral Vein, Percutaneous Approach (ICD-10-PCS; principal; 2017-11-11)
PROC: 0DJ08ZZ Inspection of Upper Intestinal Tract, Via Natural or Artificial Opening Endoscopic (ICD-10-PCS; 2017-11-13)
PROC: 30233K1 Transfusion of Nonautologous Frozen Plasma into Peripheral Vein, Percutaneous Approach (ICD-10-PCS; 2017-11-13)
DX: K92.2 Gastrointestinal hemorrhage, unspecified (principal); D68.4 Acquired coagulation factor deficiency; K70.30 Alcoholic cirrhosis of liver without ascites; I85.10 Secondary esophageal varices without bleeding; K70.10 Alcoholic hepatitis without ascites; D64.9 Anemia, unspecified; R79.89 Other specified abnormal findings of blood chemistry; F10.10 Alcohol abuse, uncomplicated
CPT/HCPCS: 36415; 80053; 81003; 82248; 83690; 85007; 85025; 85610; 85730; 86850; 86900; 86901; 86920; 86927; 93005; 94003; 94150; 99291; J2250; J2405